=== PATIENT | male | born 1955 | race Caucasian/White ===

== ENCOUNTER 2019-08-02 17:12 | Inpatient (IN) | payer OTHER ==
[2019-08-02 18:13] LABS: ALT (SGPT) 31 U/L (8-55); AST (SGOT) 22 U/L (5-34); Albumin 4.7 g/dL (3.4-4.8); Alkaline Phosphatase 69 U/L (40-110); Anion Gap 9 mmol/L (10-20); BUN (Urea Nitrogen) 17 mg/dL (8.4-25.7); Bilirubin, Total 0.6 mg/dL (0.2-1.2); Calc. Creatinine Clearance 0 mL/min (70-130); Calcium 9.7 mg/dL (7.8-10.44); Carbon Dioxide 32 mmol/L (23-31); Chloride 102 mmol/L (98-107); Estimated GFR-MDRD 68; Globulin 2.5 g/dL (2.4-3.5); Glucose 164 mg/dL (80-115); Lipase 24 U/L (8-78); Potassium 4.4 mmol/L (3.5-5.1); Protein, Total 7.2 g/dL (5.8-8.1); Sodium 139 mmol/L (136-145)
[2019-08-02 18:23] LABS: CKMB 10.7 ng/mL (0-6.6)
--- NOTE | 2019-08-02 18:35 | RAD ---
PORTABLE CHEST: History: Chest pain. Comparison: 03-03-10 FINDINGS: Heart size is within normal limits with post op sternotomy changes. The lungs are clear of infiltrate s. Old left rib fractures are seen. IMPRESSION: No active intrathoracic disease. POS: [facility]
[2019-08-02] MEDS ORDERED: Enoxaparin Sodium 100 MG/ML SYRINGE ONE (18:45)
[2019-08-02 19:03] LABS: #Eosinphils 0.2 thou/uL (0.0-0.7); #Lymphocytes 0.9 thou/uL (1.20-3.40); #Monocytes 0.3 thou/uL (0.11-0.59); #Neutrophils 4.4 thou/uL (1.40-6.50); %Basophils 0.4 % (0.0-1.0); %Eosinophils 3.3 % (0.0-10.0); %Lymphocytes 15.1 % (21.0-51.0); %Monocytes 5.6 % (0.0-10.0); %Neutrophils 75.6 % (42.0-75.0); Hemoglobin 14.2 g/dL (14.0-18.0); Mean Corpuscular HGB CONC 33.8 g/dL (32.0-36.0); Mean Corpuscular Volume 88.7 fL (78.0-98.0); Mean Platelet Volume 8.3 fL (7.4-10.4); Platelet Count 188 thou/uL (130-400); RBC Distribution Width 12.5 % (11.5-14.5); Red Blood Cell (RBC) Count 4.71 mill/uL (4.70-6.10); White Blood Cell (WBC) Count 5.8 thou/uL (4.8-10.8)
[2019-08-02] MEDS ORDERED: Acetaminophen 650 MG Suppository PR PRN (21:57)
[2019-08-02] MEDS ORDERED: Acetaminophen 325 MG TAB PO PRN (21:57)
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
[2019-08-02] MEDS ORDERED: Dextrose 50% Abboject 50 ML SYRINGE SLOW IVP PRN (23:07)
[2019-08-02] MEDS ORDERED: HumaLOG 300 UNITS/3 ML VIAL SC PRN ×2 (23:07)
[2019-08-02] MEDS ORDERED: Dextrose 5% in Water 1,000 ML IV PRN (23:07)
[2019-08-02 23:25] LABS: CKMB 15.6 ng/mL (0-6.6)
[2019-08-03] MEDS: Sodium Chloride 0.9% 1,000 ML IV SCH ×2 (01:11→15:07)
[2019-08-03 02:33] LABS: CKMB 19.8 ng/mL (0-6.6)
[2019-08-03 05:10] LABS: #Eosinphils 0.2 thou/uL (0.0-0.7); #Lymphocytes 1.4 thou/uL (1.20-3.40); #Monocytes 0.4 thou/uL (0.11-0.59); #Neutrophils 2.7 thou/uL (1.40-6.50); %Basophils 0.3 % (0.0-1.0); %Eosinophils 5.2 % (0.0-10.0); %Lymphocytes 29.9 % (21.0-51.0); %Monocytes 7.6 % (0.0-10.0); Hemoglobin 13.8 g/dL (14.0-18.0); Mean Corpuscular HGB CONC 33.5 g/dL (32.0-36.0); Mean Corpuscular Hemoglobin 29.6 pg (27.0-31.0); Mean Corpuscular Volume 88.4 fL (78.0-98.0); Mean Platelet Volume 7.9 fL (7.4-10.4); Platelet Count 154 thou/uL (130-400); RBC Distribution Width 12.4 % (11.5-14.5); Red Blood Cell (RBC) Count 4.67 mill/uL (4.70-6.10); White Blood Cell (WBC) Count 4.7 thou/uL (4.8-10.8)
[2019-08-03 05:34] LABS: Anion Gap 11 mmol/L (10-20); BUN (Urea Nitrogen) 13 mg/dL (8.4-25.7); Calc. Creatinine Clearance 0 mL/min (70-130); Calcium 8.8 mg/dL (7.8-10.44); Carbon Dioxide 27 mmol/L (23-31); Cardiac Risk 5.8 (Less than 4.5); Chloride 106 mmol/L (98-107); Cholesterol 190 mg/dl (< 200 Desired); Estimated GFR-MDRD Greater than 90; Glucose 135 mg/dL (80-115); HDL Cholesterol 33 mg/dL (>60 Neg Risk); LDL Cholesterol, Calculated 135 mg/dL; Potassium 3.7 mmol/L (3.5-5.1); Sodium 140 mmol/L (136-145); Triglycerides 110 mg/dL (Less than 150)
[2019-08-03 08:31] VITALS: BMI 28.8
[2019-08-03] MEDS: Aspirin 81 mg Enteric Coated Tablet PO SCH (08:43)
[2019-08-03] MEDS: Famotidine/PF 20 mg/2ml Vial SLOW IVP SCH ×2 (08:44→19:58)
[2019-08-03] MEDS ORDERED: Enoxaparin Sodium 100 MG/ML SYRINGE SC SCH (09:00)
[2019-08-03] MEDS ORDERED: Enoxaparin Sodium 80 MG/0.8 ML SYRINGE SC SCH (09:00)
[2019-08-03] MEDS ORDERED: Iopamidol 370 76% 50 ML VIAL FS ONE (09:32)
[2019-08-03] MEDS ORDERED: Iopamidol 370 76% 100 ML VIAL ONE (09:32)
[2019-08-03] MEDS ORDERED: Heparin (Artline) 1,000 ML ONE (11:35)
[2019-08-03] MEDS ORDERED: Lidocaine 1% (PF) 30 ML VIAL ONE (11:35)
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
[2019-08-03] MEDS ORDERED: Sodium Chloride 0.9% 200 ML IV PRN (14:22)
[2019-08-03] MEDS ORDERED: Acetaminophen/Codeine 30-300mg Tablet PO PRN ×2 (14:22)
--- NOTE | 2019-08-03 19:37 | PDOC.HOSPP ---
- Subjective Encounter Date: 08/03/19 Encounter Time: 10:00 Subjective: Pt seen for followup re: NSTEMI. Reports chest pain is better. - Objective Vital Signs & Weight: Vital Signs (12 hours) Temp Pulse Resp BP Pulse Ox 08/03/19 15:48 98.4 F 71 16 151/71 H 98 08/03/19 11:38 97.6 F 61 18 158/81 H 97 08/03/19 08:00 97.6 F 55 L 18 143/80 H 98 Weight Weight 212 lb 1.6 oz I&O: 08/02/19 08/03/19 08/04/19 06:59 06:59 06:59 Intake Total 1100 Output Total 1150 Balance -50 Result Diagrams: 08/03/19 05:01 08/03/19 05:01 Additional Labs: Accuchecks 08/03/19 08/03/19 16:41 10:27 POC Glucose 144 H 111 H Labs and MARs reviewed by me EKG Reviewed by me: Yes (Tele: NSR) Hospitalist ROS - Review of Systems Constitutional: denies: fever, chills, sweats, weakness, malaise Cardiovascular: reports: chest pain. denies: palpitations, orthopnea, paroxysmal noc. dyspnea, edema, light headedness Gastrointestinal: denies: nausea, vomiting, abdominal pain, diarrhea, constipation, melena, hematochezia Genitourinary: denies: dysuria, frequency, incontinence, hematuria, retention Musculoskeletal: denies: neck pain, shoulder pain, arm pain, back pain, hand pain, leg pain, foot pain Skin: denies: rash, lesions, emilia, bruising - Medication Medications: Active Medications Generic Name Dose Route Start Last Admin Trade Name Freq PRN Reason Stop Dose Admin Aspirin 81 mg 08/03/19 09:00 08/03/19 08:43 Ecotrin PO 81 mg DAILY KRYSTLE Administration Famotidine 20 mg 08/03/19 09:00 08/03/19 08:44 Pepcid SLOW IVP 20 mg Q12HR KRYSTLE Administration Sodium Chloride 1,000 mls @ 50 mls/hr 08/02/19 21:45 08/03/19 15:07 Normal Saline 0.9% IV 1,000 mls .Q20H KRYSTLE Administration Sodium Chloride 10 ml 08/03/19 09:00 08/03/19 08:55 Flush - Normal Saline IVF 10 ml Q12HR KRYSTLE Administration - Exam General Appearance: NAD Eye: anicteric sclera ENT: moist mucosa Neck: supple, symmetric, no JVD, no thyromegaly Heart: RRR, no murmur, no gallops, no rubs Respiratory: CTAB, no wheezes, no rales, no ronchi Gastrointestinal: soft, non-tender, non-distended, normal bowel sounds Psychiatric: normal affect, normal behavior, A&O x 3 Hosp A/P (1) NSTEMI (non-ST elevated myocardial infarction) Code(s): I21.4 - NON-ST ELEVATION (NSTEMI) MYOCARDIAL INFARCTION Status: Acute (2) HTN (hypertension) Code(s): I10 - ESSENTIAL (PRIMARY) HYPERTENSION Status: Chronic (3) Dyslipidemia Code(s): E78.5 - HYPERLIPIDEMIA, UNSPECIFIED Status: Chronic (4) DM2 (diabetes mellitus, type 2) Status: Chronic (5) HAO (obstructive sleep apnea) Code(s): G47.33 - OBSTRUCTIVE SLEEP APNEA (ADULT) (PEDIATRIC) Status: Chronic - Plan plan discussed w/ family Pt to be seen by cardiology, likely will need cath. Reasonable control of blood sugars, continue accuchecks and insulin sliding scale. Continue statin. Monitor vital signs, titrate antihypertensives as needed.
[2019-08-03] MEDS ORDERED: Rosuvastatin 10 MG TAB PO SCH (21:00)
[2019-08-03] MEDS: Nitroglycerin 0.4 MG TAB (25 Tab Bottle) PO PRN ×2 (23:07→23:12)
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
[2019-08-04] MEDS: Nitroglycerin 0.4 MG TAB (25 Tab Bottle) PO PRN ×2 (06:34→06:39)
--- NOTE | 2019-08-04 07:29 | CON ---
DATE OF CONSULTATION: 08/03/2019 ADDENDUM: INDICATION FOR CONSULTATION: A 64-year-old patient with a history of coronary artery disease, who is status post bypass surgery with a DAVALOS to the left anterior descending artery, saphenous vein graft to the first diagonal branch and also a radial graft which was anastomosis of the proximal portion of the saphenous vein graft. This radial graft goes to an intermediate branch. He had previous stent placement in the right coronary artery in 2006, and had a redo stents placed in 2009. He did not have a bypass placed on this vessel. He presented having unstable angina-type symptoms and was advised to undergo cardiac catheterization. PAST MEDICAL HISTORY: Please refer the notes dictated by the nurse practitioner. SOCIAL HISTORY: Please refer the notes dictated by the nurse practitioner. FAMILY HISTORY: Please refer the notes dictated by the nurse practitioner. REVIEW OF SYSTEMS: Please refer the notes dictated by the nurse practitioner. MEDICATIONS: Please refer the notes dictated by the nurse practitioner. ALLERGIES: PLEASE REFER THE NOTES DICTATED BY THE NURSE PRACTITIONER. PHYSICAL EXAMINATION: Please refer the notes dictated by the nurse practitioner. IMPRESSION AND PLAN: My impression is this elderly gentleman, 64 years old, has unstable angina, will be advised to undergo cardiac catheterization. His chest was clear to auscultation. Cardiovascular exam reveals a regular rate and rhythm. Carotid pulses are present. There were no bruits noted Abdomen exam was unremarkable. Extremities show no clubbing, cyanosis, or edema. Pedal pulses are present. Neurologically, he appears to be fully intact. He has a well-healed midline surgical incision after median sternotomy. His laboratory data did show evidence of a [id number] elevation myocardial infarction. His troponin I was 2.3 with an MB of 19.8 compatible with myocardial infarction. He was advised to undergo cardiac catheterization. LDL level also was elevated at 135. His BUN and creatinine level were stable at 13 and 0.8. Blood sugar was 135 and previously was 164. His BNP was 78.6. I did explain the procedure and the risks to the patient to include bleeding, infection, possible myocardial infarction, CVA, renal insufficiency, allergic contrast reaction, and the possibility of and he understands agrees. We will plan for cardiac catheterization. Job ID: [id number]
[2019-08-04] MEDS: Aspirin 81 mg Enteric Coated Tablet PO SCH (08:32)
[2019-08-04] MEDS: Famotidine/PF 20 mg/2ml Vial SLOW IVP SCH ×2 (08:33→20:46)
[2019-08-04] MEDS ORDERED: Iopamidol 370 76% 100 ML VIAL ONE (08:56)
[2019-08-04] MEDS ORDERED: Iopamidol 370 76% 50 ML VIAL FS ONE (08:56)
--- NOTE | 2019-08-04 09:56 | PDOC.CPN ---
- Subjective Date: 08/04/19 Time: 09:56 Interval history: The pt seen and examined. No overnight events. He has 2 episodes of chest tightness around 0100 and 0600 this AM; - Objective Allergies/Adverse Reactions: Allergies Allergy/AdvReac Type Severity Reaction Status Date / Time No Known Drug Allergies Allergy Verified 08/03/19 14:23 Visit Medications: Current Medications Acetaminophen (Tylenol) 650 mg PO Q4H PRN PRN Reason: Headache/Fever/Mild Pain (1-3) Last Admin: 08/03/19 23:20 Dose: 650 mg Acetaminophen (Tylenol) 650 mg ND Q4H PRN PRN Reason: Headache/Fever/Mild Pain (1-3) Acetaminophen/Codeine Phosphate (Tylenol #3) 1 tab PO Q4H PRN PRN Reason: Mild Pain (1-3) Acetaminophen/Codeine Phosphate (Tylenol #3) 2 tab PO Q4H PRN PRN Reason: Moderate Pain (4-6) Aspirin (Ecotrin) 81 mg PO DAILY [facility] Last Admin: 08/04/19 08:32 Dose: 81 mg Carvedilol (Coreg) 3.125 mg PO BID[facility] Dextrose/Water (Dextrose 50%) 25 gm SLOW IVP PRN PRN PRN Reason: Hypoglycemia Famotidine (Pepcid) 20 mg SLOW IVP Q12HR [facility] Last Admin: 08/04/19 08:33 Dose: 20 mg Glucagon (Glucagon) 1 mg IM PRN PRN PRN Reason: Hypoglycemia Dextrose/Water (D5w) 1,000 mls @ 0 mls/hr IV .Q0M PRN PRN Reason: Hypoglycemia Insulin Human Lispro (Humalog) 0 units SC .MILD SLIDING SCALE PRN PRN Reason: Mild Correctional Scale Insulin Human Lispro (Humalog) 0 units SC .BEDTIME SLIDING SC PRN PRN Reason: Bedtime Correctional Scale Nitroglycerin (Nitrostat) 0.4 mg PO Q5MIN PRN PRN Reason: Chest Pain Last Admin: 08/04/19 06:39 Dose: 0.4 mg Nitroglycerin (Nitrostat) 0.4 mg SL Q5MIN PRN PRN Reason: Chest Pain Nitroglycerin (Nitro-Bid 2% Ointment) 0.5 inch TOP Q8HR [facility] Rosuvastatin Calcium (Crestor) 20 mg PO HS KRYSTLE Sodium Chloride (Flush - Normal Saline) 10 ml IVF Q12HR KRYSTLE Last Admin: 08/04/19 08:33 Dose: 10 ml Sodium Chloride (Flush - Normal Saline) 10 ml IVF PRN PRN PRN Reason: Saline Flush Vital Signs & Weight: Vital Signs Temp Pulse Resp BP Pulse Ox 08/04/19 07:30 97.5 F L 64 18 127/73 97 08/04/19 05:32 97 08/04/19 04:00 98.1 F 74 16 131/73 97 08/03/19 23:21 98.0 F 70 22 H 127/73 97 Weight 212 lb 1.6 oz - Labs Result Diagrams: 08/04/19 14:42 08/03/19 05:01 Troponin/CKMB CK-MB (CK-2) 19.8 ng/mL (0-6.6) H* 08/03/19 01:36 Troponin I 2.320 ng/mL (< 0.028) H* 08/03/19 05:01 - Assessment/Plan Assessment/Plan: 1. CAD with hx of stent in 2006 and 2009 and CABG x3 in 2010 - plan for CABG tomorrow by Dr Pompa; will start NTG paste and Coreg 3.125mg BID; on ASA and statin 2. HNT - stable; 3. HLD - on Statin 4. DM type 2 - accuchecks and insulin sliding scale. 5. HAO - MAR reviewed * [facility] on 08/03/2019 with 100% stenosis in DAVALOS-LAD, 90% in SVG-mid 1st diag, 100 % in Ramus, >70% in-stent Re-stenosis in RCA, EF 35-40% Pt. seen and evaluated by me. I agree with the A/P by the BUNG DRIVER. He continues to have chest pain. Last episode was at 2 PM , give NTG,heparin and morphine for relief. pain lasted about 1/2. I have discussed this with the pt. and CV surgery. the plan is to takethe pt. back to the quality assurance/r&d lab technician and perform ptca/ possible stent placement to the distal SVG-> -diag. He will need surgery to follow in the near future. I have explained the procedure and risks to include: bleeding,FL,CVA, . He agrees to proceed. Plan for urgent repeat cardiac cath with intervention. marc
[2019-08-04] MEDS ORDERED: [UNRECOGNIZED DRUG - REMARK] FS SCH (11:49)
--- NOTE | 2019-08-04 12:20 | RAD ---
EXAM: Chest 2 views: HISTORY: CABG; coronary artery disease COMPARISON: 03/29/2010 FINDINGS: There is a normal-sized cardiomediastinal silhouette. The patient is status post sternotomy. There is no evidence of consolidation, mass, or pleural effusion. Degenerative changes are seen in the spine. IMPRESSION: No evidence of acute cardiopulmonary disease
[2019-08-04 12:45] LABS: Hemoglobin A1c 6.6 % (4.0-6.0)
[2019-08-04] MEDS ORDERED: Heparin 10,000 UNITS/ 10 ML VIAL SLOW IVP SCH (12:45)
[2019-08-04] MEDS ORDERED: Heparin 25,000 units/D5W 500 ML IVPB SCH (12:45)
[2019-08-04] MEDS: Nitroglycerin 0.4 MG TAB (25 Tab Bottle) SL PRN ×2 (13:51→13:59)
[2019-08-04] MEDS ORDERED: Morphine 4 MG/ML VIAL ONE (14:04)
[2019-08-04] MEDS: Nitroglycerin 2% Ointment 1 INCH/1 GM Packet TOP SCH ×2 (14:13→20:48)
[2019-08-04] MEDS ORDERED: Morphine 4 MG/ML VIAL SLOW IVP SCH (14:15)
[2019-08-04 15:00] LABS: Hemoglobin 14.9 g/dL (14.0-18.0); Platelet Count 182 thou/uL (130-400)
--- NOTE | 2019-08-04 15:16 | PDOC.HOSPP ---
- Subjective Encounter Date: 08/04/19 Encounter Time: 07:20 Subjective: Pt seen for followup re: NSTEMI. Had chest pain last night. Feels better otherwise. - Objective Vital Signs & Weight: Vital Signs (12 hours) Temp Pulse Resp BP Pulse Ox 08/04/19 11:22 98.1 F 69 16 148/82 H 97 08/04/19 07:30 97.5 F L 64 18 127/73 97 08/04/19 05:32 97 08/04/19 04:00 98.1 F 74 16 131/73 97 Weight Admit Weight 212 lb 1.6 oz Weight 212 lb 1.6 oz I&O: 08/03/19 08/04/19 08/05/19 06:59 06:59 06:59 Intake Total 1540 Output Total 1650 Balance -110 Result Diagrams: 08/04/19 14:42 08/03/19 05:01 Additional Labs: Accuchecks 08/04/19 08/04/19 08/03/19 10:53 05:32 20:25 POC Glucose 198 H 138 H 130 H 08/03/19 16:41 POC Glucose 144 H Labs and MARs reviewed by me EKG Reviewed by me: Yes (Tele: NSR) Hospitalist ROS - Review of Systems Constitutional: denies: fever, chills, sweats, weakness, malaise Respiratory: reports: SOB with excertion. denies: cough, shortness of breath, pleuritic pain, wheezing Cardiovascular: reports: chest pain. denies: palpitations, orthopnea, paroxysmal noc. dyspnea, edema, light headedness Gastrointestinal: denies: nausea, vomiting, abdominal pain, diarrhea, constipation, melena, hematochezia Genitourinary: denies: dysuria, frequency, incontinence, hematuria, retention Skin: denies: rash, lesions, emilia, bruising - Medication Medications: Active Medications Generic Name Dose Route Start Last Admin Trade Name Freq PRN Reason Stop Dose Admin Acetaminophen 650 mg 08/02/19 21:57 08/03/19 23:20 Tylenol PO 08/05/19 08:30 650 mg Q4H PRN Administration Headache/Fever/Mild Pain (1-3) Aspirin 81 mg 08/03/19 09:00 08/04/19 08:32 Ecotrin PO 08/05/19 08:30 81 mg DAILY KRYSTLE Administration Famotidine 20 mg 08/03/19 09:00 08/04/19 08:33 Pepcid SLOW IVP 08/05/19 08:30 20 mg Q12HR KRYSTLE Administration Heparin Sodium (Porcine) 0 units 08/04/19 12:45 08/04/19 14:44 Heparin 1,000 Units/Ml (10 Ml) SLOW IVP 4,000 unit ASDIR KRYSTLE Administration Protocol Heparin Sodium/Dextrose 500 mls @ 0 mls/hr 08/04/19 12:45 08/04/19 14:45 Heparin 25,000 Units/D5w 500 Ml IVPB 500 mls INF KRYSTLE Administration Protocol Per Protocol Insulin Human Lispro 0 units 08/02/19 23:07 08/04/19 11:56 Humalog SC 08/05/19 08:30 2 unit .MILD SLIDING SCALE PRN Administration Mild Correctional Scale Nitroglycerin 0.4 mg 08/03/19 14:22 08/04/19 13:59 Nitrostat SL 08/05/19 08:30 1 tab Q5MIN PRN Administration Chest Pain Nitroglycerin 0.5 inch 08/04/19 14:00 08/04/19 14:13 Nitro-Bid 2% Ointment TOP 08/05/19 08:30 0.5 inch Q8HR KRYSTLE Administration Sodium Chloride 10 ml 08/03/19 09:00 08/04/19 08:33 Flush - Normal Saline IVF 10 ml Q12HR KRYSTLE Administration - Exam General Appearance: NAD Eye: anicteric sclera ENT: moist mucosa Neck: supple, symmetric, no JVD, no thyromegaly Heart: RRR, no rubs, normal peripheral pulses Respiratory: CTAB, no wheezes, no rales, no ronchi Gastrointestinal: soft, non-tender, non-distended, normal bowel sounds Extremities: no edema Psychiatric: normal affect, normal behavior, A&O x 3 Hosp A/P (1) NSTEMI (non-ST elevated myocardial infarction) Code(s): I21.4 - NON-ST ELEVATION (NSTEMI) MYOCARDIAL INFARCTION Status: Acute (2) HTN (hypertension) Code(s): I10 - ESSENTIAL (PRIMARY) HYPERTENSION Status: Chronic (3) Dyslipidemia Code(s): E78.5 - HYPERLIPIDEMIA, UNSPECIFIED Status: Chronic (4) DM2 (diabetes mellitus, type 2) Status: Chronic (5) HAO (obstructive sleep apnea) Code(s): G47.33 - OBSTRUCTIVE SLEEP APNEA (ADULT) (PEDIATRIC) Status: Chronic - Plan Cath report noted. Pt to have re-do CABG tomorrow. Continue accuchecks and insulin sliding scale. Continue Crestor. Monitor vital signs, titrate antihypertensives as needed.
[2019-08-04] MEDS ORDERED: Lidocaine 1% (PF) 30 ML VIAL ONE (15:47)
[2019-08-04] MEDS ORDERED: Heparin (Artline) 1,000 ML ONE (15:47)
[2019-08-04] MEDS ORDERED: Midazolam HCl 2 mg/2 ml Vial ONE (16:20)
[2019-08-04] MEDS ORDERED: Heparin 10,000 UNITS/1 ML VIAL ONE (17:07)
[2019-08-04] MEDS ORDERED: TICAGRELOR 90 MG TABLET ONE (17:07)
[2019-08-04] MEDS ORDERED: Heparin (Artline) 500 ML ONE (17:58)
[2019-08-04] MEDS ORDERED: TICAGRELOR 90 MG TABLET PO SCH (18:25)
[2019-08-04] MEDS ORDERED: Furosemide 20 MG/2 ML VIAL SLOW IVP SCH (18:30)
[2019-08-04] MEDS: Carvedilol 3.125 MG TAB PO SCH (20:47)
[2019-08-04] MEDS: TICAGRELOR 90 MG TABLET PO SCH (20:48)
[2019-08-04] MEDS ORDERED: Rosuvastatin 20 MG TAB PO SCH (21:00)
[2019-08-05 04:30] LABS: #Eosinphils 0.2 thou/uL (0.0-0.7); #Monocytes 0.6 thou/uL (0.11-0.59); #Neutrophils 4.7 thou/uL (1.40-6.50); %Basophils 0.6 % (0.0-1.0); %Lymphocytes 15.3 % (21.0-51.0); %Monocytes 8.5 % (0.0-10.0); %Neutrophils 72.5 % (42.0-75.0); Hemoglobin 14.8 g/dL (14.0-18.0); Mean Corpuscular HGB CONC 32.9 g/dL (32.0-36.0); Mean Corpuscular Hemoglobin 29.3 pg (27.0-31.0); Mean Platelet Volume 7.7 fL (7.4-10.4); Platelet Count 161 thou/uL (130-400); RBC Distribution Width 12.4 % (11.5-14.5); Red Blood Cell (RBC) Count 5.05 mill/uL (4.70-6.10); White Blood Cell (WBC) Count 6.5 thou/uL (4.8-10.8)
[2019-08-05 04:58] LABS: ALT (SGPT) 25 U/L (8-55); AST (SGOT) 29 U/L (5-34); Albumin 4.2 g/dL (3.4-4.8); Alkaline Phosphatase 72 U/L (40-110); Anion Gap 11 mmol/L (10-20); BUN (Urea Nitrogen) 9 mg/dL (8.4-25.7); Bilirubin, Total 0.9 mg/dL (0.2-1.2); Calc. Creatinine Clearance 108 mL/min (70-130); Carbon Dioxide 29 mmol/L (23-31); Chloride 104 mmol/L (98-107); Estimated GFR-MDRD 80; Globulin 2.4 g/dL (2.4-3.5); Glucose 110 mg/dL (80-115); Potassium 3.6 mmol/L (3.5-5.1); Protein, Total 6.6 g/dL (5.8-8.1); Sodium 140 mmol/L (136-145)
[2019-08-05] MEDS: Nitroglycerin 2% Ointment 1 INCH/1 GM Packet TOP SCH (05:37)
[2019-08-05] MEDS: Carvedilol 3.125 MG TAB PO SCH (08:44)
[2019-08-05] MEDS: TICAGRELOR 90 MG TABLET PO SCH (08:44)
[2019-08-05] MEDS ORDERED: Nitroglycerin 0.4 MG TAB (25 Tab Bottle) SL PRN (12:56)
[2019-08-05] MEDS ORDERED: Aspirin 81 mg Enteric Coated Tablet PO SCH (13:00)
--- NOTE | 2019-08-05 13:02 | PDOC.CPN ---
- Subjective Date: 08/05/19 Time: 08:00 Interval history: The pt seen and examined. No overnight events. No cardiac complaints. - Objective Allergies/Adverse Reactions: Allergies Allergy/AdvReac Type Severity Reaction Status Date / Time No Known Drug Allergies Allergy Verified 08/03/19 14:23 Visit Medications: Current Medications Aspirin (Ecotrin) 81 mg PO DAILY [facility] Aspirin (Ecotrin) 81 mg PO NOW [facility] Stop: 08/05/19 15:00 Carvedilol (Coreg) 3.125 mg PO BID-[facility] Last Admin: 08/05/19 08:44 Dose: 3.125 mg Nitroglycerin (Nitrostat) 0.4 mg SL Q5MIN PRN PRN Reason: Chest Pain Sodium Chloride (Flush - Normal Saline) 10 ml IVF Q12HR [facility] Last Admin: 08/05/19 08:45 Dose: 10 ml Sodium Chloride (Flush - Normal Saline) 10 ml IVF PRN PRN PRN Reason: Saline Flush Ticagrelor (Brilinta) 90 mg PO BID [facility] Last Admin: 08/05/19 08:44 Dose: 90 mg Vital Signs & Weight: Vital Signs Temp Pulse Resp BP Pulse Ox 08/05/19 11:46 97.3 F L 76 16 112/79 97 08/05/19 07:33 97.5 F L 71 16 141/92 H 97 08/05/19 06:39 96 08/05/19 03:55 97.8 F 68 18 126/78 96 Admit Weight 212 lb 1.6 oz Weight 212 lb 1.6 oz - Physical Exam General: alert & oriented x3 Neck: supple neck Cardiac: regular rate and rhythm, S1/S2 Lungs: clear to auscultation Neuro: cranial nerve 2-12 intact Extremities: no edema, other: (cath site is DUST MIXER without drainage, mass or hematoma) - Labs Result Diagrams: 08/05/19 04:15 08/05/19 04:15 Troponin/CKMB CK-MB (CK-2) 19.8 ng/mL (0-6.6) H* 08/03/19 01:36 Troponin I 2.320 ng/mL (< 0.028) H* 08/03/19 05:01 - Telemetry Sinus rhythms and dysrhythmias: sinus rhythm - Assessment/Plan Assessment/Plan: 1. CAD with hx of stent in 2006 and 2009 and CABG x3 in 2010 - s/p BMS in SVG- DM1 on 08/04/2019; Cont. Brilinta with Dr Pompa's instruction. Cont. Coreg 3.125mg BID; on ASA and statin 2. HNT - stable; stopped Metoprolol and changed to Coreg for decreased EF. 3. HLD - on Statin 4. DM type 2 - accuchecks and insulin sliding scale. 5. HAO - MAR reviewed * LHC on 08/03/2019 with 100% stenosis in DAVALOS-LAD, 90% in SVG-mid 1st diag, 100 % in Ramus, >70% in-stent Re-stenosis in RCA, EF 35-40% * LHC on 08/04/2019 with BMS in SVG-DM1; * Echo on 08/04/2019 with EF 40-45%, Anterior-lateral hypokenesis, mild MR and WI, and trace TR * From Cardiac standpoint, the pt is stable to d/c home this afternoon if he is asymptomatic. The pt will f/u with Dr Blackwell' office within 2 wks. The sample of Brilinta given to the pt. Medication Adherence education given to the pt and family.
[2019-08-05 15:37] VITALS: BP 122/69; TEMP 97.9
--- NOTE | 2019-08-05 19:16 | DIS ---
DATE OF ADMISSION: 08/02/2019 DATE OF DISCHARGE: 08/05/2019 PRIMARY CARE PROVIDER: [facility] in [place]. DISCHARGE DIAGNOSES: 1. Kvs-NC-ujswyypju myocardial infarction. 2. Coronary artery disease. CONDITION OF PATIENT ON THE DAY OF DISCHARGE: I assessed Mr. Mendez on the day of discharge. He denies any chest pain or shortness of breath. Vital signs are stable. S1 and S2 are heard, regular. Lungs are clear to auscultation bilaterally. DISCHARGE MEDICATIONS: 1. Iron 18 mg daily. 2. Lisinopril 10 mg daily. 3. Nitroglycerin 0.4 mg as needed. 4. Crestor 20 mg at bedtime. 5. Aspirin 81 mg daily. 6. Coreg 3.125 mg two times a day. 7. Metformin 500 mg two times a day, to be started with morning dose on August 07, 2019. 8. Brilinta 90 mg two times a day. CONSULTATIONS DURING THIS HOSPITALIZATION: Cardiology, Dr. Blackwell and Cardiovascular Surgery, Dr. Pompa. POST-ACUTE CARE FOLLOWUP: With primary care provider in 3 days, with Dr. Pompa in 3 to 4 weeks, and with Cardiology Service in 2 weeks. HOSPITAL COURSE: Mr. Mendez is a pleasant 64-year-old gentleman, who was admitted to [facility] on August 02, 2019 for [id number] myocardial infarction. He was seen by Cardiology Service. He underwent cardiac catheterization and coronary angiography on August 03, 2019. He was found to have severe diffuse coronary artery disease, patent SVG graft to mid ramus coronary artery, and totally occluded DAVALOS graft to mid LAD coronary artery. He also had diseased SVG graft to the mid first diagonal coronary artery, 90% stenosis at the anastomosis. He was recommended urgent redo surgical coronary artery bypass graft. He was seen by Cardiovascular surgeon and the surgery was planned for August 05, 2019. However, on August 04, 2019, he had excruciating chest pain. He underwent repeat cardiac catheterization and coronary angiography on August 04, 2019. He had successful PCI with bare metal stent of the distal SVG to the first diagonal coronary artery. He has been started on ticagrelor. He is being discharged home in a stable condition. LABORATORY DATA: On the day of discharge, he has white count 6500, hemoglobin 14.8, platelet count 161,000, and normal comprehensive metabolic profile. During this hospitalization, he had triglycerides 110, cholesterol 190, LDL cholesterol 135, and HDL cholesterol 33. ACTIVITY: As tolerated. DIET: Diabetic and heart healthy. DISCHARGE DESTINATION: Home. TIME SPENT: Total amount of time spent coordinating this discharge: 32 minutes. Job ID: [id number]
[2019-08-05] MEDS ORDERED: Atorvastatin Calcium 20 MG TAB PO SCH (21:00)
[2019-08-06] MEDS ORDERED: Aspirin 81 mg Enteric Coated Tablet PO SCH (09:00)
--- NOTE | 2019-08-06 10:47 | PQF ---
HERNANDEZ BAH DAVID [id number] CARI MONTEZ [id number] CLINICAL DOCUMENTATION CLARIFICATION FORM: POST DISCHARGE Addendum to original discharge summary date: ____ Late entry note date: __ DATE: 08/06/2019 ATTN:ELIUD HUBBARD Please exercise your independent, professional judgment in responding to the clarification form. Clinical indicators are provided on the bottom of this form for your review Please check appropriate box(s): [ ] Non ST elevation myocardial infarction is due to in stent restenosis [ X ] Non ST elevation myocardial infarction is not due to in stent restenosis [ ] Other diagnosis [ ] Unable to determine CLINICAL INDICATORS - SIGNS / SYMPTOMS / LABS CAD with hx of stent in 2006 and 2009 and CABG x3 in 2010-Documented in cardiology progress note on 08/05 by Mariz[address] [facility] on 08/03/2019 with 100% stenosis in DAVALOS-LAD, 90% in SVG-mid 1st diag, 100% in ramus, >70% in-stent re-stenosis in RCA, EF 35- 40%--Documented in cardiology progress note on 08/05 by Marizol Hollingsworth NP Non ST elevation myocardial infarction-Documented in Discharge summary on 08/05 by Les Gomez [employer] CAD with hx of stent in 2006 and 2009 and CABG x3 in 2010-Documented in cardiology progress note on 08/05 by Marizol Hollingsworth NP HTN-Documented in cardiology progress note on 08/05 by Marizol Hollingsworth NP TREATMENT: S/P BMS in SVG-DM1 on 08/04/[address] Pompa's instruction, cont Coreg 3.125 mg BID, On ASA and statin -Documented in cardiology progress note on 08/05 by Marizol Hollingsworth NP (This form is maintained as a part of the permanent medical record) 2014 [employer]. All Rights Reserved [email or web address]
--- NOTE | 2019-08-09 00:02 | EKG ---
Test Reason : C/O CHES T PAIN Blood Pressure : / mmHG Vent. Rate : 064 BPM Atrial Rate : 064 BPM P-R Int : 144 ms QRS Dur : 082 ms QT Int : 384 ms P-R-T Axes : 019 022 056 degrees QTc Int : 396 ms Normal sinus rhythm Inferior infarct (cited on or before 24-JUL-2009) Cannot rule out Anterior infarct , age undetermined Abnormal ECG When compared with ECG of 02-AUG-2019 23:17, (Unconfirmed) Premature ventricular complexes are no longer Present Serial changes of Inferior infarct Present Confirmed by Louis ESCAMILLA ([id number]) on 08/09/2019 12:02:24 AM Referred By: SELENE Confirmed By:Louis ESCAMILLA
--- NOTE | 2019-08-09 00:03 | EKG ---
Test Reason : STAT Blood Pressure : / mmHG Vent. Rate : 069 BPM Atrial Rate : 069 BPM P-R Int : 154 ms QRS Dur : 080 ms QT Int : 358 ms P-R-T Axes : 015 020 078 degrees QTc Int : 383 ms Normal sinus rhythm Inferior infarct (cited on or before 24-JUL-2009) Abnormal ECG When compared with ECG of 04-AUG-2019 14:22, (Unconfirmed) No significant change was found Confirmed by Louis ESCAMILLA ([id number]) on 08/09/2019 12:03:04 AM Referred By: DARCY DIA Confirmed By:Louis ESCAMILLA
--- NOTE | 2019-08-09 00:04 | EKG ---
Test Reason : Blood Pressure : / mmHG Vent. Rate : 067 BPM Atrial Rate : 067 BPM P-R Int : 150 ms QRS Dur : 086 ms QT Int : 430 ms P-R-T Axes : 008 024 122 degrees QTc Int : 454 ms Normal sinus rhythm Inferior infarct (cited on or before 24-JUL-2009) T wave abnormality, consider anterolateral ischemia Abnormal ECG When compared with ECG of 04-AUG-2019 18:56, (Unconfirmed) Serial changes of Inferior infarct Present Confirmed by Louis ESCAMILLA ([id number]) on 08/09/2019 12:04:42 AM Referred By: ANDI Confirmed By:Louis ESCAMILLA
== END 2019-08-05 16:00 | disposition home or self-care (01) | DRG 249 ==
LOC: ERS 17:12 → ERHOLD 19:39 → 2NO 08-03 07:20
PROVIDERS: ADMIT Hospitalist; ATTEND Hospitalist
PROC: 4A023N7 Measurement of Cardiac Sampling and Pressure, Left Heart, Percutaneous Approach (ICD-10-PCS; principal; 2019-08-03)
PROC: B2111ZZ Fluoroscopy of Multiple Coronary Arteries using Low Osmolar Contrast (ICD-10-PCS; 2019-08-03)
PROC: B2131ZZ Fluoroscopy of Multiple Coronary Artery Bypass Grafts using Low Osmolar Contrast (ICD-10-PCS; 2019-08-03)
PROC: B2151ZZ Fluoroscopy of Left Heart using Low Osmolar Contrast (ICD-10-PCS; 2019-08-03)
PROC: 02703EZ Dilation of Coronary Artery, One Artery with Two Intraluminal Devices, Percutaneous Approach (ICD-10-PCS; 2019-08-04)
DX: I21.4 Non-ST elevation (NSTEMI) myocardial infarction (principal); T82.855A Stenosis of coronary artery stent, initial encounter; I25.790 Atherosclerosis of other coronary artery bypass graft(s) with unstable angina pectoris; E78.5 Hyperlipidemia, unspecified; G47.33 Obstructive sleep apnea (adult) (pediatric); I12.9 Hypertensive chronic kidney disease with stage 1 through stage 4 chronic kidney disease, or unspecified chronic kidney disease; E11.22 Type 2 diabetes mellitus with diabetic chronic kidney disease; N18.2 Chronic kidney disease, stage 2 (mild); Y83.8 Other surgical procedures as the cause of abnormal reaction of the patient, or of later complication, without mention of misadventure at the time of the procedure; Z82.3 Family history of stroke; Z80.51 Family history of malignant neoplasm of kidney; Z83.3 Family history of diabetes mellitus; Z82.49 Family history of ischemic heart disease and other diseases of the circulatory system; Z91.14 Patient's other noncompliance with medication regimen; Z95.5 Presence of coronary angioplasty implant and graft
CPT/HCPCS: 36415; 36416; 71045; 71046; 80048; 80053; 80061; 82553; 83036; 83690; 83735; 83880; 84484; 85014; 85018; 85025; 85049; 85347; 85730; 86850; 86900; 86901; 92928; 93005; 93010; 93306; 93459; 93798; 94760; 96372; 99152; 99153; C1769; C1876; C1887; J1644; J1650; J2001; J2250; J2270; Q9967; S0028

== ENCOUNTER 2019-09-20 07:22 | Outpatient (CLI) | payer OTHER ==
--- NOTE | 2019-09-21 11:37 | EKG ---
Test Reason : Blood Pressure : / mmHG Vent. Rate : 053 BPM Atrial Rate : 053 BPM P-R Int : 152 ms QRS Dur : 082 ms QT Int : 410 ms P-R-T Axes : 034 043 082 degrees QTc Int : 384 ms Sinus bradycardia Anterior infarct , age undetermined Abnormal ECG When compared with ECG of 05-AUG-2019 06:55, Anterior infarct is now Present Criteria for Inferior infarct are no longer Present T wave inversion no longer evident in Anterior leads QT has shortened Confirmed by ISMA BANGURA, SJagdish ([id number]) on 09/21/2019 11:37:32 AM Referred By: FERNANDA Confirmed By:DR. Bettina ASHBY MD
== END 2019-09-20 07:23 | disposition home or self-care (01) ==
LOC: LABBT 07:22
PROVIDERS: ATTEND Thoracic Surgery (Cardiothoracic Vascular Surgery)
DX: Z01.818 Encounter for other preprocedural examination (principal); I25.10 Atherosclerotic heart disease of native coronary artery without angina pectoris
CPT/HCPCS: 93005; 93010

== ENCOUNTER 2019-09-20 10:30 | Inpatient (IN) | payer OTHER ==
[2019-09-20 11:45] LABS: Hemoglobin 13.6 g/dL (14.0-18.0); Mean Corpuscular HGB CONC 33.8 g/dL (32.0-36.0); Mean Corpuscular Hemoglobin 30.3 pg (27.0-31.0); Mean Corpuscular Volume 89.6 fL (78.0-98.0); Mean Platelet Volume 7.8 fL (7.4-10.4); Platelet Count 171 thou/uL (130-400); RBC Distribution Width 12.7 % (11.5-14.5); Red Blood Cell (RBC) Count 4.47 mill/uL (4.70-6.10); White Blood Cell (WBC) Count 4.8 thou/uL (4.8-10.8)
[2019-09-20 12:16] LABS: Anion Gap 15 mmol/L (10-20); BUN (Urea Nitrogen) 13 mg/dL (8.4-25.7); Calc. Creatinine Clearance 0 mL/min (70-130); Calcium 9.5 mg/dL (7.8-10.44); Carbon Dioxide 26 mmol/L (23-31); Chloride 104 mmol/L (98-107); Estimated GFR-MDRD Greater than 90; Glucose 119 mg/dL (80-115); Potassium 3.9 mmol/L (3.5-5.1); Sodium 141 mmol/L (136-145)
[2019-09-22] MEDS ORDERED: Albumin 5% 500 ML ONE (06:28)
[2019-09-22] MEDS ORDERED: Heparin 10,000 UNITS/1 ML VIAL 30,000 UNITS in Sodium Chloride 0.9% 1,000 ML FS SCH (06:45)
[2019-09-22] MEDS ORDERED: Heparin 5,000 UNITS/ML VIAL ONE ×2 (06:45→10:14)
[2019-09-22] MEDS ORDERED: Fentanyl 250 MCG/5 ML VIAL ONE ×2 (07:16)
[2019-09-22] MEDS ORDERED: Midazolam HCl 5 mg/5 ml Vial ONE (07:16)
[2019-09-22] MEDS ORDERED: Protamine Sulfate 250 MG/25 ML VIAL ONE (10:14)
[2019-09-22] MEDS ORDERED: Magnesium Sulfate 1 GM/2 ML VIAL ONE (10:14)
[2019-09-22] MEDS ORDERED: Lidocaine 2% PF 5 ML VIAL ONE (10:14)
[2019-09-22] MEDS ORDERED: Rocuronium Bromide 10 MG/ML (10ML VIAL) ONE (10:14)
[2019-09-22] MEDS ORDERED: Lidocaine 1% PF 5 ML VIAL ONE (10:14)
[2019-09-22] MEDS ORDERED: Heparin 30,000 units/30 ml VIAL ONE (10:14)
[2019-09-22] MEDS ORDERED: Vecuronium 10 MG VIAL ONE (10:14)
[2019-09-22] MEDS ORDERED: PHENYLEPHRINE-NS 100 MCG/ML 10 ML SYRINGE ONE ×2 (10:14→10:40)
[2019-09-22] MEDS ORDERED: Sodium Bicarb 50 MEQ/50 ML Abboject 8.4% SYRINGE ONE (10:14)
[2019-09-22] MEDS ORDERED: Papaverine 60 MG/2 ML VIAL ONE (10:14)
[2019-09-22] MEDS ORDERED: Cardioplegic Soln 1,000 ML BAG ONE (10:14)
[2019-09-22] MEDS ORDERED: Potassium Chloride 60 MEQ/30 ML VIAL ONE (10:14)
[2019-09-22] MEDS ORDERED: Calcium Chloride 1 GM/10 ML Abboject SYRINGE ONE (10:14)
[2019-09-22] MEDS ORDERED: Aminocaproic Acid 5 GM/20 ML VIAL ONE (10:14)
[2019-09-22] MEDS ORDERED: Norepinephrine 4 MG/4 ML VIAL ONE (10:14)
[2019-09-22] MEDS ORDERED: PROPOFOL 200 MG/20 ML VIAL ONE (10:14)
[2019-09-22] MEDS ORDERED: Norepinephrine 8 MG/0.9% NS 250 ML IVPB PRN (13:01)
[2019-09-22] MEDS ORDERED: Fentanyl 100 MCG/2 ML VIAL SLOW IVP PRN (13:01)
[2019-09-22] MEDS ORDERED: Mag-Al 1200 mg/1200 mg/30 ML UDCUP PO PRN (13:01)
[2019-09-22] MEDS ORDERED: hydrALAZINE 20 MG/ML VIAL SLOW IVP PRN (13:01)
[2019-09-22] MEDS ORDERED: Hetastarch 6% 500 ML 500 ML IVPB PRN (13:01)
[2019-09-22] MEDS ORDERED: niCARdipine 25 MG in Sodium Chloride 0.9% 250 ML 250 ML IVPB PRN ×2 (13:01→14:26)
[2019-09-22] MEDS ORDERED: HYDROcodone/Acetaminophen 5/325 mg Tablet PO PRN (13:01)
[2019-09-22] MEDS ORDERED: Bisacodyl 10 MG SUPP PR PRN (13:01)
[2019-09-22] MEDS ORDERED: DOPamine 400 MG/D5W 250 ML 250 ML IVPB PRN (13:01)
[2019-09-22] MEDS ORDERED: Post-Op Insulin Drip Protocol IVPB ONE (13:01)
[2019-09-22] MEDS ORDERED: Acetaminophen 325 MG TAB PO PRN (13:01)
[2019-09-22] MEDS ORDERED: Guaifenesin DM 100-10/5 ML UDCUP PO PRN (13:01)
[2019-09-22] MEDS ORDERED: Nitroglycerin 50 MG/250 ML BOT 250 ML IVPB PRN (13:01)
[2019-09-22] MEDS ORDERED: Magnesium 2 GM/50 ML 2 GM in Premix Bag 1 BAG IVPB SCH (13:01)
[2019-09-22] MEDS ORDERED: Bisacodyl 5 MG TAB PO PRN (13:01)
[2019-09-22] MEDS ORDERED: Ondansetron PF 4 MG/2 ML Vial IVP PRN (13:01)
[2019-09-22] MEDS ORDERED: HUMULIN R 100 UNITS in Sodium Chloride 0.9% 100 ML IVPB SCH (13:10)
[2019-09-22] MEDS ORDERED: Dextrose 5% in Water 1,000 ML IV PRN (13:10)
[2019-09-22] MEDS ORDERED: Dextrose 50% Abboject 50 ML SYRINGE SLOW IVP PRN (13:10)
[2019-09-22] MEDS ORDERED: Insulin Regular 300 UNITS/3 ML VIAL SC PRN (13:10)
[2019-09-22 13:28] LABS: Actual Bicarbonate (HCO3a) 21.5 mEq/L (22-28); Base Excess (BEa) -3.9 mEq/L (-2.0 to +3.0); CO2 Tension 40.3 mmHg (35.0-45.0); Calcium, Ionized 1.03 mmol/L (1.12-1.30); Carboxyhemoglobin (COHb) 0.4 gm% (0.0-3.0); Hemoglobin (Hb) 11.2 g/dL (14.0-18.0); O2 Tension (PaO2) 133.9 mmHg (> 80.0); Potassium - ABG Lab 3.89 mmol/L (3.70-5.30); pH, Arterial 7.35 (7.35-7.45)
[2019-09-22 13:29] LABS: ALV-art Gradient 243.525 (0-20)
[2019-09-22 13:39] LABS: #Eosinphils 0.2 thou/uL (0.0-0.7); #Lymphocytes 0.7 thou/uL (1.20-3.40); #Monocytes 0.5 thou/uL (0.11-0.59); #Neutrophils 7.1 thou/uL (1.40-6.50); %Basophils 0.4 % (0.0-1.0); %Lymphocytes 8.4 % (21.0-51.0); %Monocytes 5.8 % (0.0-10.0); %Neutrophils 83.4 % (42.0-75.0); Hemoglobin 11.3 g/dL (14.0-18.0); Mean Corpuscular HGB CONC 33.9 g/dL (32.0-36.0); Mean Corpuscular Hemoglobin 30.8 pg (27.0-31.0); Mean Corpuscular Volume 90.9 fL (78.0-98.0); Mean Platelet Volume 7.5 fL (7.4-10.4); Platelet Count 153 thou/uL (130-400); RBC Distribution Width 12.9 % (11.5-14.5); Red Blood Cell (RBC) Count 3.68 mill/uL (4.70-6.10); White Blood Cell (WBC) Count 8.5 thou/uL (4.8-10.8)
[2019-09-22] MEDS: Morphine 2 MG/ML SYRINGE SLOW IVP PRN ×4 (13:40→15:57)
[2019-09-22] MEDS: Lactated Ringer's 1,000 ML IV SCH (13:42)
--- NOTE | 2019-09-22 13:43 | RAD ---
EXAM: Single view of the chest HISTORY: Status post open heart surgery COMPARISON: 08/02/2019 FINDINGS: Single view of the chest shows an enlarged cardiomediastinal silhouette. The patient is st atus post sternotomy. An endotracheal tube is seen with its tip just above the gita. A right subclavian central venous catheter seen with its tip in the superior vena cava. There is no evidence of pneumothorax. Mediastinal drains are seen. Atelectasis is seen in the left lung base. The bones are unremarkable. IMPRESSION: Appropriate position of lines and tubes status post sternotomy.
[2019-09-22 13:45] LABS: INR-International Normal Ratio 1.4; PTT 31.1 SEC (22.9-36.1); Prothrombin Time 17.1 SEC (12.0-14.7)
[2019-09-22] MEDS: CEFAZOLIN 2 GM in Premix Bag 1 BAG IVPB SCH ×2 (13:52→20:37)
[2019-09-22 13:58] VITALS: BMI 29.9
[2019-09-22 13:59] LABS: Anion Gap 11 mmol/L (10-20); BUN (Urea Nitrogen) 9 mg/dL (8.4-25.7); Calc. Creatinine Clearance 155 mL/min (70-130); Calcium 7.4 mg/dL (7.8-10.44); Carbon Dioxide 22 mmol/L (23-31); Chloride 111 mmol/L (98-107); Estimated GFR-MDRD Greater than 90; Glucose 162 mg/dL (80-115); Sodium 140 mmol/L (136-145)
[2019-09-22] MEDS: Potassium Chloride 20 MEQ/100 ML PREMIX BAG IVPB PRN ×2 (14:19→20:38)
[2019-09-22] MEDS ORDERED: niCARdipine 25 MG in Sodium Chloride 0.9% 250 ML 240 ML IVPB PRN (14:30)
[2019-09-22] MEDS: Fentanyl 100 MCG/2 ML VIAL SLOW IVP PRN ×3 (14:33→19:57)
--- NOTE | 2019-09-22 15:10 | OP ---
DATE OF PROCEDURE: 09/22/2019 PREOPERATIVE DIAGNOSIS: Coronary artery disease status post prior coronary artery bypass grafting. PROCEDURE PERFORMED: Redo coronary artery bypass graft x2 with a right radial artery to the left anterior descending, which was a small vessel, measuring about 1.25 and a posterior descending artery 1.25 to 1.5, which was smaller than anticipated from the cardiac cath. DESCRIPTION OF PROCEDURE: After prepping and draping, Dr. Mercer did an open vein harvest of the left greater saphenous vein at the level of the knee while I harvested the right radial artery after ensuring good collateral flow. Following closure of these wounds, attention was turned to the redo sternotomy, which was performed after untwisting the wires using the oscillating saw. The wires were densely adherent to the bone and were quite difficult to remove. Using various techniques, the wires were eventually removed and a high school vice principal placed. Adhesions were taken down between the heart and the sternum, mobilizing the right atrium, the aorta, the saphenous vein graft, and the radial artery. Following this, the left internal thoracic artery retractor was placed and the right heart was mobilized as was left heart from the anterior chest wall. Following this, the patient was heparinized. Aorta and right atrium were cannulated and cardiopulmonary bypass begun. Dissection was then carried out to free enough of the lateral wall of the left ventricle to allow access to the LAD. Following this, the cross-clamp was applied. A liter of cold [place] cardioplegic solution was given, following which the laparotomy pads were placed behind the heart. The LAD opened just distal to the previous anastomosis. It was smaller than anticipated. Radial artery was anastomosed here, following which the PDA was opened and it was also smaller than anticipated and saphenous vein anastomosed here. Following completion of this, the cross-clamp was removed and the partial occluding clamp placed and a punch was created in the aorta and the vein anastomosis completed here, and on the engel of the vein, the radial artery was placed. The patient was then weaned from cardiopulmonary bypass and temporary atrial wires were placed and not used. Cannulas were removed and protamine was given systemically with the aortic cannulation site being secured with a 4-0 Prolene suture. Due to diffuse oozing, a platelet pack was then given, and due to persistent bleeding, a 2nd platelet pack. Sternum was reapproximated with #7 interrupted wires with the wire holes bleeding significantly, requiring prolonged period of coagulating. Vancomycin paste, platelet-rich blood, and platelet-poor plasma were utilized on the bone edges, following which the subcutaneous tissue and skin were closed in layers over a 24 and 19 Kevin drain. The patient is to be taken to the ICU in guarded condition. Job ID: [id number]
[2019-09-22] MEDS: Ketorolac Tromethamine 30 MG/ML VIAL IVP SCH ×2 (17:36→23:16)
[2019-09-22 18:09] LABS: Actual Bicarbonate (HCO3a) 23.5 mEq/L (22-28); Base Excess (BEa) -1.9 mEq/L (-2.0 to +3.0); CO2 Tension 42.5 mmHg (35.0-45.0); Calcium, Ionized 1.09 mmol/L (1.12-1.30); Carboxyhemoglobin (COHb) 0.5 gm% (0.0-3.0); Hemoglobin (Hb) 12.1 g/dL (14.0-18.0); O2 Tension (PaO2) 101.5 mmHg (> 80.0); Potassium - ABG Lab 3.98 mmol/L (3.70-5.30); pH, Arterial 7.36 (7.35-7.45)
[2019-09-22 18:12] LABS: ALV-art Gradient 130.575 (0-20); Puncture Site line
[2019-09-22 18:58] LABS: Hemoglobin 11.8 g/dL (14.0-18.0)
[2019-09-22] MEDS ORDERED: Famotidine/PF 20 mg/2ml Vial SLOW IVP SCH (21:00)
[2019-09-23] MEDS: Fentanyl 100 MCG/2 ML VIAL SLOW IVP PRN (01:01)
[2019-09-23] MEDS: Lactated Ringer's 1,000 ML IV SCH ×2 (03:40→16:08)
[2019-09-23] MEDS: HYDROcodone/Acetaminophen 5/325 mg Tablet PO PRN ×4 (04:19→19:35)
[2019-09-23 04:26] LABS: #Lymphocytes 0.7 thou/uL (1.20-3.40); #Monocytes 0.6 thou/uL (0.11-0.59); #Neutrophils 5.3 thou/uL (1.40-6.50); %Basophils 0.1 % (0.0-1.0); %Eosinophils 0.1 % (0.0-10.0); %Lymphocytes 10.9 % (21.0-51.0); %Monocytes 8.4 % (0.0-10.0); %Neutrophils 80.5 % (42.0-75.0); Hemoglobin 10.9 g/dL (14.0-18.0); Mean Corpuscular HGB CONC 34.2 g/dL (32.0-36.0); Mean Corpuscular Hemoglobin 31.1 pg (27.0-31.0); Mean Corpuscular Volume 90.8 fL (78.0-98.0); Mean Platelet Volume 8.3 fL (7.4-10.4); Platelet Count 190 thou/uL (130-400); Red Blood Cell (RBC) Count 3.51 mill/uL (4.70-6.10); White Blood Cell (WBC) Count 6.5 thou/uL (4.8-10.8)
[2019-09-23 04:50] LABS: Anion Gap 11 mmol/L (10-20); BUN (Urea Nitrogen) 11 mg/dL (8.4-25.7); Calc. Creatinine Clearance 153 mL/min (70-130); Calcium 7.7 mg/dL (7.8-10.44); Carbon Dioxide 23 mmol/L (23-31); Chloride 110 mmol/L (98-107); Estimated GFR-MDRD Greater than 90; Glucose 109 mg/dL (80-115); Potassium 4.1 mmol/L (3.5-5.1); Sodium 140 mmol/L (136-145)
[2019-09-23] MEDS: Ketorolac Tromethamine 30 MG/ML VIAL IVP SCH ×3 (04:59→17:57)
[2019-09-23] MEDS: CEFAZOLIN 2 GM in Premix Bag 1 BAG IVPB SCH (04:59)
[2019-09-23] MEDS ORDERED: Insulin Glargine 9 UNITS in Pre-Filled Syringe 1 EACH SC SCH (07:45)
--- NOTE | 2019-09-23 07:50 | RAD ---
EXAM: Single view of the chest HISTORY: Status post open heart surgery COMPARISON: 09/22/2019 FINDINGS: Single view of the chest shows a mildly enlarged cardiomediastinal silhouette. The patient is status post sternotomy. The endotracheal tube is been removed. Mediastinal drain and central venous catheter are unchanged in position. There is no evidence of consolidation, mass, or pleural e ffusion. The bones are unremarkable. IMPRESSION: Stable exam status post extubation.
--- NOTE | 2019-09-23 08:00 | PRG ---
DATE OF SERVICE: 09/23/2019 The patient is now postop day #1 following redo coronary bypass grafting. His vital signs are stable with a blood pressure of 100 to 120, heart rate in the 70s, sinus rhythm. He is sitting up in the chair this morning. His chest tube output is about 425 mL since surgery. His laboratory values reveal a hemoglobin of 10.9 after 1 unit of packed red cells intraoperatively. His platelet count is 190 after receiving 2-platelet packs during surgery. He feels better this morning than yesterday evening and offers no complaints. His dressings are dry on both his left distal thigh and his chest. His lungs are clear to auscultation. His chest x-ray is clear. Plan at this time is to remain in the ICU for this morning, stop his fluids later today and stop his Accu-Cheks as his sugars have required minimal insulin. He has no history of diabetes. Job ID: [id number]
[2019-09-23] MEDS: Aspirin 325 MG TAB PO SCH (08:51)
[2019-09-23] MEDS ORDERED: FLU VACC QS2019-20(6MOS UP)/PF 60 MCG/0.5 ML SYRINGE IM ONE (09:00)
[2019-09-23] MEDS: Rosuvastatin 20 MG TAB PO SCH (19:34)
[2019-09-24] MEDS: HYDROcodone/Acetaminophen 5/325 mg Tablet PO PRN ×5 (04:24→18:52)
[2019-09-24 04:57] LABS: #Eosinphils 0.2 thou/uL (0.0-0.7); #Lymphocytes 0.7 thou/uL (1.20-3.40); #Monocytes 0.4 thou/uL (0.11-0.59); #Neutrophils 4.3 thou/uL (1.40-6.50); %Basophils 0.2 % (0.0-1.0); %Eosinophils 3.4 % (0.0-10.0); %Lymphocytes 11.8 % (21.0-51.0); %Monocytes 7.5 % (0.0-10.0); %Neutrophils 77.1 % (42.0-75.0); Hemoglobin 10.2 g/dL (14.0-18.0); Mean Corpuscular HGB CONC 32.8 g/dL (32.0-36.0); Mean Corpuscular Hemoglobin 30.3 pg (27.0-31.0); Mean Corpuscular Volume 92.3 fL (78.0-98.0); Mean Platelet Volume 8.1 fL (7.4-10.4); Platelet Count 135 thou/uL (130-400); RBC Distribution Width 13.1 % (11.5-14.5); Red Blood Cell (RBC) Count 3.38 mill/uL (4.70-6.10); White Blood Cell (WBC) Count 5.6 thou/uL (4.8-10.8)
[2019-09-24 05:19] LABS: Anion Gap 7 mmol/L (10-20); BUN (Urea Nitrogen) 10 mg/dL (8.4-25.7); Calc. Creatinine Clearance 155 mL/min (70-130); Calcium 8.1 mg/dL (7.8-10.44); Carbon Dioxide 30 mmol/L (23-31); Chloride 105 mmol/L (98-107); Estimated GFR-MDRD Greater than 90; Glucose 132 mg/dL (80-115); Potassium 4.3 mmol/L (3.5-5.1); Sodium 138 mmol/L (136-145)
[2019-09-24] MEDS: Aspirin 325 MG TAB PO SCH (07:29)
[2019-09-24] MEDS: Clopidogrel Bisulfate 75 MG TAB PO SCH (07:29)
--- NOTE | 2019-09-24 08:06 | RAD ---
EXAM: Chest one view: HISTORY: Postop open heart surgery COMPARISON: 09/23/2019 FINDINGS: Increased bronchovascular markings particularly in the lower lung zones worse on the left side with s ome minimal left pleural effusion and left infrahilar parenchymal changes possibly some subsegmental atelectasis. No pneumothorax. IMPRESSION: Stable pleural and parenchymal changes mostly in the left base. No pneumothorax or other new process.
[2019-09-24] MEDS ORDERED: Dextrose 50% Abboject 50 ML SYRINGE SLOW IVP PRN (13:27)
[2019-09-24] MEDS ORDERED: Dextrose 5% in Water 1,000 ML IV PRN (13:27)
[2019-09-24] MEDS ORDERED: Milk Of Magnesia 30 ML UDCUP PO PRN (13:27)
[2019-09-24] MEDS ORDERED: Mineral Oil ENEMA PR PRN (13:27)
[2019-09-24] MEDS ORDERED: Zolpidem Tartrate 5 MG TAB PO PRN (13:27)
[2019-09-24] MEDS ORDERED: Nitroglycerin 0.4 MG TAB (25 Tab Bottle) SL PRN (13:27)
[2019-09-24] MEDS ORDERED: Insulin Regular 300 UNITS/3 ML VIAL SC PRN (13:27)
--- NOTE | 2019-09-24 13:30 | PRG ---
DATE OF SERVICE: 09/24/2019 The patient was seen about 7 o'clock this morning on rounds and he had an uneventful night. He was afebrile. Vital signs were good. His chest x-ray looked fine. His chest tube output was less than 100 for 24 hours, and both mediastinal drains as well as the atrial pacing wires were removed. His chest dressing was dry. He will be transferred out to the floor today. Job ID: [id number]
[2019-09-24] MEDS: metFORMIN 500 MG TAB PO SCH (20:36)
[2019-09-24] MEDS: Rosuvastatin 20 MG TAB PO SCH (20:36)
[2019-09-25] MEDS: HYDROcodone/Acetaminophen 5/325 mg Tablet PO PRN ×4 (00:47→23:18)
[2019-09-25] MEDS: Potassium Chloride 10 MEQ TAB PO SCH (08:04)
[2019-09-25] MEDS: Furosemide 40 MG TAB PO SCH (08:05)
[2019-09-25] MEDS: metFORMIN 500 MG TAB PO SCH ×2 (08:05→20:13)
[2019-09-25] MEDS: Clopidogrel Bisulfate 75 MG TAB PO SCH (08:05)
[2019-09-25] MEDS: Aspirin 325 mg Enteric Coated Tablet PO SCH (08:05)
[2019-09-25] MEDS: Rosuvastatin 20 MG TAB PO SCH (20:13)
[2019-09-26 07:07] VITALS: TEMP 98
[2019-09-26] MEDS: Aspirin 325 mg Enteric Coated Tablet PO SCH (08:28)
[2019-09-26] MEDS: Potassium Chloride 10 MEQ TAB PO SCH (08:28)
[2019-09-26] MEDS: Clopidogrel Bisulfate 75 MG TAB PO SCH (08:28)
[2019-09-26] MEDS: Furosemide 40 MG TAB PO SCH (08:29)
[2019-09-26] MEDS: HYDROcodone/Acetaminophen 5/325 mg Tablet PO PRN (08:29)
[2019-09-26] MEDS: metFORMIN 500 MG TAB PO SCH (08:29)
[2019-09-26 12:23] VITALS: BP 138/85
== END 2019-09-26 13:06 | disposition home or self-care (01) | DRG 236 ==
LOC: SURG A 09-22 06:12 → CCU 09-22 12:50 → 2NO 09-24 16:41
PROVIDERS: ADMIT Thoracic Surgery (Cardiothoracic Vascular Surgery); ATTEND Thoracic Surgery (Cardiothoracic Vascular Surgery)
PROC: 021109W Bypass Coronary Artery, Two Arteries from Aorta with Autologous Venous Tissue, Open Approach (ICD-10-PCS; principal; 2019-09-22)
PROC: 06BQ0ZZ Excision of Left Saphenous Vein, Open Approach (ICD-10-PCS; 2019-09-22)
PROC: 5A1221Z Performance of Cardiac Output, Continuous (ICD-10-PCS; 2019-09-22)
DX: T82.897A Other specified complication of cardiac prosthetic devices, implants and grafts, initial encounter (principal); I25.810 Atherosclerosis of coronary artery bypass graft(s) without angina pectoris; I10 Essential (primary) hypertension; E78.5 Hyperlipidemia, unspecified; G47.30 Sleep apnea, unspecified; D64.9 Anemia, unspecified; M54.2 Cervicalgia; M54.9 Dorsalgia, unspecified; G89.29 Other chronic pain; Z79.84 Long term (current) use of oral hypoglycemic drugs; Z79.82 Long term (current) use of aspirin; Z79.899 Other long term (current) drug therapy; Z95.1 Presence of aortocoronary bypass graft; I25.2 Old myocardial infarction; Z95.5 Presence of coronary angioplasty implant and graft; Y83.8 Other surgical procedures as the cause of abnormal reaction of the patient, or of later complication, without mention of misadventure at the time of the procedure
CPT/HCPCS: 36415; 36416; 36430; 71045; 80048; 82805; 85025; 85027; 85610; 85730; 86850; 86900; 86901; 93005; 93010; 93798; 94002; J0360; J0690; J1642; J1644; J1815; J1885; J2001; J2250; J2270; J2440; J2704; J2720; J3010; J3370; J3475; J3480; J3490; P9016; P9035; P9045; S0017; S0028